=== PATIENT | female | born 1980 | race Caucasian/White ===

== ENCOUNTER → 2023-09-16 13:43 | Outpatient (REF) | payer OTHER, SELFPAY | LOC: WDC 13:43 | PROVIDERS: ATTENDING PHYSICIAN Obstetrics & Gynecology; FAMILY PHYSICIAN Nurse Practitioner Adult Health | DX: R92.8 Other abnormal and inconclusive findings on diagnostic imaging of breast (principal) | CPT/HCPCS: 76642 ==

== ENCOUNTER → 2023-09-23 10:45 | Outpatient (REF) | payer OTHER, SELFPAY | LOC: RAD 10:45 | PROVIDERS: ATTENDING PHYSICIAN Obstetrics & Gynecology; FAMILY PHYSICIAN Nurse Practitioner Adult Health | DX: N94.6 Dysmenorrhea, unspecified (principal) | CPT/HCPCS: 76830; 76856 ==

== ENCOUNTER → 2024-03-15 13:27 | Outpatient (REF) | payer OTHER, SELFPAY | LOC: WDC 13:27 | PROVIDERS: ATTENDING PHYSICIAN Obstetrics & Gynecology; FAMILY PHYSICIAN Nurse Practitioner Adult Health | DX: Z12.31 Encounter for screening mammogram for malignant neoplasm of breast (principal); R92.8 Other abnormal and inconclusive findings on diagnostic imaging of breast | CPT/HCPCS: 76642; 77063; 77067 ==

== ENCOUNTER → 2024-08-31 14:40 | Outpatient (REF) | payer OTHER, SELFPAY | LOC: RAD 14:40 | PROVIDERS: ATTENDING PHYSICIAN Nurse Practitioner Adult Health | DX: R10.0 Acute abdomen (principal) | CPT/HCPCS: 76700 ==

== ENCOUNTER 2024-10-22 06:24 | Day surgery (SDC) | payer OTHER, SELFPAY ==
[2024-10-22] VITALS (16 sets, daily range): BP systolic 88–135; BP diastolic 56–90; BMI 31.8
[2024-10-22] MEDS: TYLENOL 1000 MG PO (10:59)
[2024-10-22] MEDS: NORMOSOL-R/PLASMALYTE-A 1000 IV (10:59)
[2024-10-22] MEDS: IC GREEN 2.5 MG IV (12:09)
[2024-10-22] MEDS: HEPARIN 5000 UNITS SC (12:11)
--- NOTE | 2024-10-22 14:26 | OR.RPT ---
Operative Report
Operative Report
Primary Surgeon: Luis Fernando
Assisting Surgeon: Laura GALEAS
Pre-op Diagnosis: Biliary colic
Post-op Diagnosis: Same
Procedure Performed: Robot assisted laparoscopic cholecystectomy
Anesthesia Type: GETA
Specimen / Cultures: Gallbladder
Estimated Blood Loss: 10cc
Complications: None immediate
Operative Findings: Soft floppy gallbladder
Date of Surgery:�10/22/24
Indications: This 44F developed biliary colic. Laparoscopic cholecystectomy with robotic assist was elected.
Description of procedure: The patient was placed on the operating table in the supine position. General anesthesia was induced. A time-out was completed verifying correct patient, procedure, site, positioning, and special equipment prior to
beginning this procedure. An orogastric tube was placed. The abdomen was prepped and draped in the usual sterile fashion. The drain was prepped into the field. A stab incision was made in left upper quadrant and the Veress needle was inserted.
Proper position was confirmed by aspiration and saline meniscus test. The abdomen was insufflated with carbon dioxide to a pressure of 12mmHg. The patient tolerated insufflation well.
A 8mm trocar was then inserted at the left upper quadrant. The laparoscope was inserted and the abdomen inspected. No injuries from initial trocar placement or Veress needle insertion were noted. Additional 8mm trocars were then inserted in the
following locations: two in the right lower quadrant and to above the umbilicus. The abdomen was inspected and no abnormalities were found. The table was placed in the reverse Trendelenburg position with the right side up. The dome of the
gallbladder was grasped with an atraumatic grasper and retracted over the dome of the liver. The infundibulum was then grasped with an atraumatic grasper and retracted toward the right lower quadrant. This maneuver exposed Calot�s triangle. The
peritoneum overlying the gallbladder infundibulum was then incised and the cystic duct and cystic artery identified and circumferentially dissected so that a clear view of the liver was achieved through a window between the cystic duct an cystic
artery. At this time, the only two structures going into the gallbladder were the cystic artery and cystic duct.
The cystic duct was then doubly clipped and divided. The cystic artery was controlled with bipolar and divided. The gallbladder was then dissected from its peritoneal attachments by electrocautery. The gallbladder was removed using an endoscopic
retrieval bag placed through the umbilical port. The gallbladder was passed off the table as a specimen. The gallbladder fossa was irrigated with saline. There was no evidence of bleeding from the gallbladder fossa or cystic artery or leakage of the
bile from the cystic duct stump. The umbilical trocar site was closed at the fascial level with 2-0 PDS. Secondary trocars were removed under direct vision and noted to be hemostatic. The abdomen was allowed to collapse. The skin was closed with
subcuticular sutures of 4-0 monocryl and topical skin adhesive. The orogastric tube was removed.
The patient tolerated the procedure well and was taken to the postanesthesia care unit in stable condition.
== END 2024-10-22 15:32 | disposition home or self-care (01) ==
LOC: SDS 06:24
PROVIDERS: ATTENDING PHYSICIAN Surgery
DX: K80.10 Calculus of gallbladder with chronic cholecystitis without obstruction (principal)
CPT/HCPCS: 47562; 88304

== ENCOUNTER 2024-10-27 20:13 | Observation (INO) | payer OTHER, SELFPAY ==
[2024-10-27] VITALS (9 sets, daily range): BP systolic 117–142; BP diastolic 80–105; BMI 31.7; BMI 31.5
[2024-10-27 14:05] LABS: % Basophils 0.3 % (0-2); % Immature Granulocytes 0.3 % (0-0.5); % Lymphocytes 12.3 % (20.5-51.1); % Neutrophils 76.1 % (42.2-75.2); Absolute Eosinophils 0.1 10^3/uL (0-0.7); Absolute Lymphocytes 1.1 10^3/uL (1.2-3.4); Absolute Monocytes 0.9 10^3/uL (0.1-0.6); Absolute Neutrophils 6.8 10^3/uL (1.4-6.5); Hematocrit 42.9 % (37.0-47.0); Hemoglobin 14.7 g/dL (12.0-16.0); Mean Corp Hgb Conc. 34.3 g/dL (33.0-37.0); Mean Corpuscular Hgb 29.2 pg (27.0-31.0); Mean Corpuscular Volume 85.3 fL (81.0-99.0); Mean Platelet Volume 9.9 fL (7.4-10.4); Nucleated Red Blood Cells % 0 %; Platelet Count 335 10^3/uL (130-400); Red Blood Cell Count 5.03 10^6/uL (4.20-5.40); White Blood Cell Count 8.9 10^3/uL (4.8-10.8)
[2024-10-27 14:28] LABS: HCG, Serum Qualitative Screen Negative
[2024-10-27 14:51] LABS: ALT (SGPT) 463 U/L (0-35); AST (SGOT) 640 U/L (14-36); Albumin 4.5 g/dl (3.5-5.0); Alkaline Phosphatase 123 U/L (38-126); Blood Urea Nitrogen 11 mg/dl (7-17); Calcium 9.9 mg/dl (8.4-10.2); Carbon Dioxide 29 mmol/L (22-30); Chloride 103 mmol/L (98-107); Estimated Creatinine Clearance 113 ml/min; Glucose 94 mg/dl (70-99); Lipase 85 U/L (23-300); Sodium 138 mmol/L (135-145); Total Bilirubin 1.5 mg/dl (0.2-1.3); Total Protein 7.6 g/dl (6.3-8.2); eGFR > 60.00
--- NOTE | 2024-10-27 15:11 | ED.GENMED ---
History of Present Illness
General
Chief Complaint: Post Operative Problem(s)
Source: patient
Exam Limitations: none
Time Seen by Provider: 10/27/24 15:08
Nursing documentation reviewed up to this point in time: agreed with
History of Present Illness
History of Present Illness:
Patient is a 44-year-old female status post cholecystectomy on Tuesday [address] Gould ,woke up today with pain, same type of pain as she had prior to having surgery. She describes as a burning pain in the right upper quadrant rating to her
back. Around 8:30 AM she took tramadol and ibuprofen the pain is still about a persistent 8 out of a 10. She does report she called Dr. Gould who recommended she come to the ER
Past History
Past History
ED Past Medical History: Hypercholesterolemia and Other (Ovarian cyst)
ED Past Surgical History: None, Gynecological (Uterine ablation) and Tonsilectomy
Social History
Tobacco: Non-smoker
Alcohol: Occasional
Personal:
Living: with family
Review of Systems
Review of Systems
Allergies reviewed?: Yes
All Other Systems: ROS reviewed and negative except as documented in HPI and ROS
Constitutional: Reports no symptoms; Denies fever
Respiratory: Reports no symptoms
Cardiac: Reports no symptoms
ABD/GI: Reports abdominal pain; Denies nausea, vomiting, diarrhea or constipated
Musculoskeletal: Reports no symptoms
Skin: Reports no symptoms
Neurological: Reports no symptoms
Psychiatric: Reports no symptoms
Phy Exam
General Physical Exam
General Presentation: no apparent distress
General age: appears stated age
General Skin: warm and dry
General Habitus: normal
General Mental: alert
General Hydration: appears well hydrated
Cardiovascular Exam
Cardiovascular Exam: regular rate/rhythm, no murmur and normal peripheral pulses
Pulmonary Exam
Pulmonary Exam: lungs clear
Gastrointestinal Exam
Gastrointestinal Exam: soft and other (RUQ tenderness )
Neurological Exam
Neurological Exam: alert and oriented x3
Musculoskeletal Exam
Musculoskeletal Exam: full ROM
Skin Exam
Skin Exam: normal color and warm/dry
Psychiatric Exam
Psychiatric Exam: normal mood/affect
Course
Orders/Labs/Results
Orders:
Orders
10/27/24 13:38
IV Insert/Care/Rem.- Treatment PRN
Test Result ONCE
10/27/24 13:44
Complete Blood Count/With Diff Urgent
Comprehensive Metabolic Panel Urgent
HCG, Serum Qualitative Screen Urgent
Comment: Notify provider if positive test present
Lipase Urgent
10/27/24 15:16
HYDROmorphone [Dilaudid] 0.5 mg IV NOW STA
Ondansetron Injectable [Zofran] 4 mg IV NOW STA
10/27/24 15:18
0.9% Sodium Chloride 1000 ml [Nss] 1,000 ml IV BOLUS
10/27/24 15:21
Mrcp Without MR [MR Mrcp Without] Urgent
Comment:
Reason For Exam: ruq pain s/p cholecystectomy elevated lfts
OK for patient to be off Cardiac Monitoring for MRI: Yes
Recent pill cam endoscopy?: No
10/27/24 15:55
HYDROmorphone [Dilaudid] 1 mg .ROUTE .STK-MED ONE
10/27/24 15:56
HYDROmorphone [Dilaudid] 1 mg IV NOW STA
10/27/24 18:17
HYDROmorphone [Dilaudid] 1 mg IV NOW STA
10/27/24 19:19
Piperacillin/Tazo 3.375 Gram [Zosyn] 3.375 gram in 50 ml IV NOW
10/27/24 19:43
Admit/Transfer Patient As Directed
Co-Sign Provider:
Level of Care: Observation services
Assign to:: Medical/Surgical
Physician / Group: [facility]/general surgery
Diagnosis: post operative intractable abdominal pain
10/27/24 19:44
PRN Pain Medication Management As Directed
May give lesser potent ordered pain med per pt: Yes
preference::
Protocol:: Medication orders for pain may be administered in a
manner that supports deferring to patient preference
when the pt is:
- Requesting an ordered lesser potent pain medication.
Least to most potent pain medications are defined
as: acetaminophen < NSAID < tramadol < opioids
(morphine, oxycodone, hydromorphone).
- Requesting a lesser dose of the same medication IF
ORDERED.
- Requesting a less intrusive route of administration
if both routes are prescribed by the provider (PO <
IV).
10/27/24 19:45
Code Status As Directed
Resuscitation Status: Full Code
10/27/24 20:56
0.9% Sodium Chloride 1000 ml [Nss] 1,000 ml IV 60 mls/hr
Ondansetron Injectable [Zofran] 4 mg IV Q6HPRN PRN
10/27/24 20:56
Activity As Directed
Activity Level: Out of Bed-Early Mobility
Anti-embolism (STEWART) Hose As Directed
Type: Knee high
Intake/ Output As Directed
Frequency: Per unit guidelines
Pneumatic Compression Sleeves As Directed
Type: Thigh high
Vital Signs As Directed
Frequency: Per unit guidelines
DX Deep Vein Thrombosis Video Routine
10/28/24 Breakfast
NPO
Allow oral meds: Yes
Allow clear liquids: No
NPO with Ice Chips: Yes
Complete Blood Count/No Diff IN AM
Comprehensive Metabolic Panel IN AM
Abnormal Lab Results
10/27/24
13:44
Absolute Neuts (auto) 6.8 H 10^3/uL
(1.4-6.5)
Absolute Lymphs (auto) 1.1 L 10^3/uL
(1.2-3.4)
Absolute Monos (auto) 0.9 H 10^3/uL
(0.1-0.6)
Neutrophils % 76.1 H %
(42.2-75.2)
Lymphocytes % 12.3 L %
(20.5-51.1)
Monocytes % 10.0 H %
(1.7-9.3)
Total Bilirubin 1.5 H mg/dl
(0.2-1.3)
AST 640 H* U/L
(14-36)
ALT 463 H U/L
(0-35)
10/27/24 13:44
10/27/24 13:44
Vital Signs
Initial and Last Documented VS:
Initial Vital Signs
Temp Pulse BP Pulse Ox
98.4 F 94 142/105 98
10/27/24 13:31 10/27/24 13:31 10/27/24 13:31 10/27/24 13:31
Last Documented Vital Signs
Temp Pulse Resp BP Pulse Ox
98.2 F 89 18 125/93 98
10/27/24 21:53 10/27/24 21:53 10/27/24 21:53 10/27/24 21:53 10/27/24 21:53
MDM/Problems Addressed
Differential Diagnosis Includes:
not limited to choledocholithiasis
MDM/Problems Addressed:
As documented patient is status postcholecystectomy several days ago today with increased pain. She reports today she had increasing pain in the right upper quadrant similar to when she had gallbladder pain prior to her surgery. She does report a
fever. She presents tender to touch. Case reviewed with Dr. Gould MRCP ordered. There is no evidence for choledocholithiasis on MRCP there is soft tissue edema in the cholecystectomy bed in keeping with the patient's recent postoperative status
no loculated fluid collection. I did review this with surgery who feels that the patient may have recently passed a stone or this is a false negative MRCP because patient does have pain. Will admit. Patient has medicated for pain. Patient
reported fever this morning however she was afebrile here with a normal white count as discussed with Dr. Gould however will cover with Zosyn. Discussed with house provider.
*Radiology
Radiology exam reviewed: radiology read reviewed
*Pulse Oximetry
Patient hypoxic: no
*Critical Care Note
Total Time (30-74mins, 75-104mins- exclusive of procedures): Not Applicable
Data Reviewed
Review of Other/Old Records Reveals: Labs and Operative Reports
Source: patient
Patient Management
Discussion with other providers: Financial Analyst (DR Gould )
ED Attending Note
-
Portions of this chart may have been created with voice recognition software.� Occasional wrong word or��sound alike� substitutions may have occurred due to the inherent limitations of voice recognition software.
Discharge Plan
Departure
Patient Disposition: Admit
Date of Disposition: 10/27/24
Time of Disposition: 19:13
Admit to: Med/Surg
Admit to doctor: Luis Fernando
Presentation/result/management discussed w/ accepting MD/DO: Luis Fernando
Patient with high blood pressure during this ER visit?: Yes
Condition: Fair
Covid-19: Not Applicable
Discharge Problem:
Abdominal pain
Interventions
Interventions:
*Risk Screen - Suicide Last Done: 10/27/24 13:33
*General Assessment Last Done: 10/27/24 13:33
*Neglect/Abuse Screening Last Done: 10/27/24 13:33
*ED- Fall Risk Assessment Last Done: 10/27/24 14:32
*ED COVID-19 Vaccine History Last Done: 10/27/24 14:32
*Nursing Disposition Last Done: 10/27/24 21:40
ED-Skin Assessment Last Done: 10/27/24 14:32
Discharge Date and Time
Discharge Date/Time: 10/27/24 21:40
[2024-10-27] MEDS: NSS 1000 IV ×2 (15:26→21:21)
[2024-10-27] MEDS: ZOFRAN 4 MG IV (15:29)
[2024-10-27] MEDS: DILAUDID 0.5 MG IV (15:29)
[2024-10-27] MEDS: DILAUDID 1 MG IV ×4 (15:56→23:51)
[2024-10-27] MEDS: ZOSYN 50 IV ×2 (19:22→23:50)
--- NOTE | 2024-10-27 20:47 | HPS.HSE ---
Addendum entered and electronically signed by Umair Gould MD 10/28/24 10:41:
I saw and examined the patient.
The Loom Doffer's note was reviewed and I agree with the note.
Comment: Pain continues, epigastric. AFVSS, ttp to epigastrium and less to RUQ on exam. LFTs rising. MRCP negative for choledocho, negative for fluid collections, CBD 7mm. Clinically and biochemically c/w choledocho. Rec GI consult for EUS/ERC if
no improvement in exam/labs by tomorrow.
Original Note:
Family Physician
-
Family Physician: Zully Blum
Chief Complaint
-
abdominal pain post cholecystectomy, elevated LFTs
History of Present Illness
This is a pleasant but clearly uncomfortable 44 year old female who comes to the ED with RUQ burning abdominal pain which radiates to her back which began this morning when it awakened her from a sound sleep. She is post op day #5 of an outpatient
robotic assisted laparascopic cholecystectomy with EBL of 10 cc. She states no post operative problems until today. PMH includes Raynauds, hypercholesterolemia, meningitis 2016, anxiety, vaginal childbirth x2. She states pain is very similar to pre
surgery and did have temperature of 101 F at home today. MRCP done while here in ED showing expected inflammation, soft tissue edema, no filling defect and no loculated pleural effusion.
Medical History
Past Medical History
Past Medical History: Reports Hypercholesterolemia, Psychiatric (anxiety) and Other
Additional Past Medical History:
meningitis 2016, Covid 03/24/22, ovarian cyst
Past Surgical History: Reports Cholecystectomy (10/22/24), Gynocological (vaginal childbirth x2, uterine ablation 2017) and Other (right arm,chest cyst removal 08/12)
Social History
Tobacco: Non-smoker
Alcohol: Occasional
Drug: None
Personal:
Living: With Family
Employment: Employed
Family History
Family History: Diabetes (father with pre diabetes ), Hypertension (sister) and Other (mother with dementia and PTSD, sisters and father with hypercholesterolemia.)
Allergies / Home Medications
Allergies reflects when Allergies were last updated in [facility].
Home Medications with original date entered in [facility]
Allergy/Medication List:
Allergies
Allergy/AdvReac Type Severity Reaction Status Date / Time
No Known Allergies Allergy Verified 10/27/24 13:33
Home Medications
coQ10 (ubiquinol) 200 mg capsule 400 mg PO DAILY 10/16/24
desogestrel 0.15 mg-ethinyl estradiol 0.03 mg tablet (Apri) 1 tab PO DAILY 10/16/24
multivitamin 1 tab PO DAILY 10/16/24
omega 2-gqj-dal-fish oil 900 mg-1,400 mg capsule,delayed release 4 cap PO DAILY 10/16/24
red yeast rice 600 mg tablet 1,200 mg PO DAILY 10/16/24
venlafaxine 75 mg capsule,extended release 24 hr 75 mg PO DAILY 10/16/24
tramadol 50 mg tablet 50 - 100 mg (1 - 2 x 50 mg) PO Q6H PRN Pain #25 tabs 10/22/24
Review of Systems
-
History Source: Patient, Coordinated Provider and Other (previously obtained medical records)
A 12 point ROS was completed and negative except as noted: Yes
Constitutional: Reports Fatigue and Other (sweating )
EENT: Reports No Symptoms
Respiratory: Reports No Symptoms
Cardiac: Reports No Symptoms
Abdomen/GI: Reports Abdominal Pain (RUQ radiating to back described as burning) and Nausea
: Reports No Symptoms
Musculoskeletal: Reports No Symptoms
Skin: Reports No Symptoms
Neurological: Reports No Symptoms
Endocrine: Reports No Symptoms
Hematologic/Lymphatic: Reports No Symptoms
Psych: Reports No Symptoms
Physical Exam
Vital Signs
Vital Signs
Temp Pulse Resp BP Pulse Ox
98.2 F 89 18 125/93 98
10/27/24 21:53 10/27/24 21:53 10/27/24 21:53 10/27/24 21:53 10/27/24 21:53
Physical Exam
General: Well Developed, Well Nourished, Conversant, Pain and Sweats
HEENT: NormoCephalic, Moist mucous membranes, Atraumatic and PERRLA
Respiratory: Clear and Non Labored Respirations
Cardiac: Regular Rhythm
Breast: Deferred by me
GI: Soft, Normal Bowel Sounds and Tender
Rectal: Deferred by Provider
Genito-urinary: Clear Urine
Musculoskeletal: No Clubbing, No Cyanosis, No Edema and Normal Gait & Station
Skin: Warm, Dry and Other (stab wounds (X4 approx) healing from cholecystectomy 10/22/24)
Neuro: Awake, Alert, Oriented, No Motor Deficits, Nonfocal/grossly intact and No Sensory Deficits
Hematologic/Lymphatic: No Lymphadenopathy
Psych: Calm
Laboratory Results
-
10/27/24 13:44
10/27/24 13:44
Laboratory Results
Total Bilirubin 1.5 mg/dl (0.2-1.3) H 10/27/24 13:44
AST 640 U/L (14-36) H* 10/27/24 13:44
ALT 463 U/L (0-35) H 10/27/24 13:44
Alkaline Phosphatase 123 U/L (38-126) 10/27/24 13:44
Lipase 85 U/L (23-300) 10/27/24 13:44
Data Reviewed
-
MRI: Report Reviewed by me (No MRCP evidence for choledocholithiasis. Soft tissue edema in the cholecystectomy bed most in keeping with the patient's recent postoperative status. No loculated fluid collection.)
Old Records: Reviewed
Impression/Plan
-
IMPRESSION: Post op intractable abdominal pain
PLAN: This is a pleasant but clearly uncomfortable 44 year old female who comes to the ED with RUQ burning abdominal pain which radiates to her back which began this morning when it awakened her from a sound sleep. She is post op day #5 of an
outpatient robotic assisted laparascopic cholecystectomy with EBL of 10 cc. She states no post operative problems until today. PMH includes Raynauds, hypercholesterolemia, meningitis 2016, anxiety, vaginal childbirth x2. She states pain is very
similar to pre surgery and did have temperature of 101 F at home today. MRCP done while here in ED showing expected inflammation, soft tissue edema, no filling defect and no loculated pleural effusion.
*Intractable abdominal pain: dilaudid IV, toradol prn. NS @60 ml/hr. NPO
*Febrile episode: Trend CBC, fever curve, Zosyn IV
*Elevated LFTs: repeat in am
*Nausea: Zofran IV prn
*DVT prophylaxis: OOB, ambulate, SCDs, Teds
*Disposition: FC Admit observation General surgery service Dr. Gould.
--- NOTE | 2024-10-27 21:50 | PTCARENOTE ---
Patient arrived from ED to [facility], AAOx3, very pleasant. 5 healing lap sites to abdomen observed. Patient c/o of RUQ pain. IVF infusing per order. VSS, assessment on going.
[2024-10-27] MEDS: TORADOL 15 MG IV (22:54)
[2024-10-28] MEDS: DILAUDID 1 MG IV ×6 (03:21→22:35)
[2024-10-28] MEDS: ZOSYN 50 IV ×4 (05:38→23:51)
[2024-10-28 06:13] LABS: Hematocrit 38.4 % (37.0-47.0); Hemoglobin 13.1 g/dL (12.0-16.0); Mean Corp Hgb Conc. 34.1 g/dL (33.0-37.0); Mean Corpuscular Hgb 29.3 pg (27.0-31.0); Mean Corpuscular Volume 85.9 fL (81.0-99.0); Mean Platelet Volume 9.9 fL (7.4-10.4); Platelet Count 271 10^3/uL (130-400); Red Blood Cell Count 4.47 10^6/uL (4.20-5.40); Red Cell Dist. Width 13.2 % (11.5-14.5)
[2024-10-28 06:40] LABS: Albumin 3.5 g/dl (3.5-5.0); Alkaline Phosphatase 190 U/L (38-126); Blood Urea Nitrogen 7 mg/dl (7-17); Calcium 8.8 mg/dl (8.4-10.2); Carbon Dioxide 30 mmol/L (22-30); Chloride 106 mmol/L (98-107); Estimated Creatinine Clearance 98 ml/min; Glucose 98 mg/dl (70-99); Potassium 4.2 mmol/L (3.5-5.1); Sodium 138 mmol/L (135-145); Total Bilirubin 3.1 mg/dl (0.2-1.3); Total Protein 5.9 g/dl (6.3-8.2); eGFR > 60.00
[2024-10-28 06:53] LABS: ALT (SGPT) 880 U/L (0-35); AST (SGOT) 718 U/L (14-36)
[2024-10-28 07:15] VITALS: BP 114/81
[2024-10-28] MEDS: EFFEXOR XR 75 MG PO (07:35)
[2024-10-28] MEDS: TORADOL 15 MG IV ×3 (09:21→22:20)
--- NOTE | 2024-10-28 12:31 | CM ---
Addendum entered by Emma Calles 10/28/24 12:39:
Pt is OBS and letter was signed.
Pt has a main level set up through recovery.
Original Note:
Initial assessment completed with pt at bedside.
Pt is a 44 yr old female admitted with post op intractable abdominal pain. Pt had cholecystectomy Tuesday and has not had change in pain and no VN at home.
At baseline, pt lives with her and their children in a multi level home with 3ste.
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
PCP; Zully Blum
Pharm; [facility] [address] [place]
PLAN; Home with no needs.
[2024-10-28 15:10] VITALS: BP 127/92
[2024-10-28] MEDS: NSS 1000 IV (15:14)
[2024-10-28] MEDS: ZOFRAN 4 MG IV (19:06)
[2024-10-28 22:41] VITALS: BP 129/82
[2024-10-29] MEDS: ZOSYN 50 IV ×2 (04:59→11:37)
[2024-10-29 07:30] VITALS: BP 110/75
[2024-10-29 07:36] LABS: Hematocrit 39.2 % (37.0-47.0); Hemoglobin 13.1 g/dL (12.0-16.0); Mean Corp Hgb Conc. 33.4 g/dL (33.0-37.0); Mean Corpuscular Hgb 28.5 pg (27.0-31.0); Mean Corpuscular Volume 85.4 fL (81.0-99.0); Mean Platelet Volume 9.8 fL (7.4-10.4); Platelet Count 298 10^3/uL (130-400); Red Blood Cell Count 4.59 10^6/uL (4.20-5.40); Red Cell Dist. Width 13.1 % (11.5-14.5); White Blood Cell Count 8.7 10^3/uL (4.8-10.8)
[2024-10-29 08:08] LABS: ALT (SGPT) 634 U/L (0-35); AST (SGOT) 250 U/L (14-36); Albumin 3.9 g/dl (3.5-5.0); Alkaline Phosphatase 290 U/L (38-126); Blood Urea Nitrogen 7 mg/dl (7-17); Calcium 9.4 mg/dl (8.4-10.2); Carbon Dioxide 24 mmol/L (22-30); Chloride 105 mmol/L (98-107); Estimated Creatinine Clearance 112 ml/min; Glucose 71 mg/dl (70-99); Potassium 4.6 mmol/L (3.5-5.1); Sodium 138 mmol/L (135-145); Total Bilirubin 5.5 mg/dl (0.2-1.3); Total Protein 6.5 g/dl (6.3-8.2); eGFR > 60.00
--- NOTE | 2024-10-29 08:35 | CON.GI ---
Addendum entered and electronically signed by Elvia Billy MD 10/29/24 10:37:
I saw and examined the patient.
The LOAD TALLIER or PA's note was reviewed and I agree with the note.
Comment:
This patient is a 44-year-old woman with a history of hyperlipidemia, cholelithiasis, status post cholecystectomy on October 22, 2024. She presented on 10 27 with a right upper quadrant pain that was severe and radiated to her back with a fever. She did
have abnormal liver enzymes on admission but an MRCP performed showed no stones and a surgically absent gallbladder. She was started on Zosyn. She did have resolving discomfort which is minimal now.
abd: soft, tender ruq
impression:
abnl lfts
hx of cholecystectomy
plan:
d/w Dr. Lao and will do EUS to determine if small residual stone
follow lfts
pain control
NPO
add hep panel
Original Note:
Consultation
-
Date/Time Consultation Requested: 10/28/24 0858
Date/Time Consultation Performed: 10/29/24 0815
Requesting Provider: SANTO Nam
Performing Provider: Dr. Billy/SANTO Valdez
Reason for Consultation: RUQ pain, elevated LFTs
Medical History
Chief Complaint / HPI
Chief Complaint: RUQ pain
History of Present Illness:
44-year-old female with past medical history of hyperlipidemia, Raynaud's, anxiety, meningitis, ovarian cyst, cholelithiasis status post laparoscopic robotic cholecystectomy on 10/22/2024 presents to the emergency room on 10/27/2024 with right upper
quadrant discomfort that she described as dull, burning that radiated to her back. She states at home she had a fever of 101. It started that morning. She rated it as a 9 on a scale of 0-10. It went away quickly and this morning she rates it as
a '2'. She states this was similar to her biliary colic that she experienced prior to her surgery. She is currently feeling 'hot cold'. Without any fevers. On presentation patient had total bilirubin of 1.5, AST of 640, ALT of 463 and alk phos
of 123. Lipase was 85. Normal white count of 8.9. She was started on Zosyn. She had an MRCP performed that showed surgically absent gallbladder. Postoperative soft tissue edema in the cholecystectomy bed. No loculated fluid collection. No
significant intrahepatic bile duct dilatation. Normal caliber of the CBD measuring 7 mm. No filling defect. Main PD is nondilated. We are asked to evaluate as patient is having rising bilirubin and alk phos. On 10/28/2024 her bilirubin paxton to
3.1 with an AST of 718 and ALT of 880 as well as alk phos of 190. The patient states her pain has improved and this morning her total bilirubin is 5.5, AST of 250, ALT is 634 and alk phos of 290. She does have bilirubinuria. No bowel movements.
She is still feeling that 'hot cold sensation' and still remains afebrile. She denies any current fevers, nausea, vomiting, melena, hematochezia, dysphagia or odynophagia. No early satiety or unintentional weight loss. She has never had
endoscopy or colonoscopy before.
Past Medical History
Past Medical History: Hypercholesterolemia and Other (Raynaud's, anxiety, meningitis, ovarian cysts, cholelithiasis)
Past Surgical History: Cholecystectomy and Other (Uterine ablation, right arm, chest cyst removal)
Social History
Tobacco: Non-Smoker
Alcohol: Occasional
Drug: None
Personal:
Living: With Family
Employment: Employed
Family History
Family History: Other (No family history of gastrointestinal malignancy or IBD)
Allergies / Home Medications
Allergy/AdvReac Type Severity Reaction Status Date / Time
No Known Allergies Allergy Verified 10/27/24 13:33
�Medication �Instructions �Recorded
coQ10 (ubiquinol) 200 mg capsule 400 mg PO DAILY Supplement 10/16/24
desogestrel 0.15 mg-ethinyl 1 tab PO DAILY Hormonal Agent 10/16/24
estradiol 0.03 mg tablet (Apri)
multivitamin 1 tab PO DAILY Supplement 10/16/24
omega 6-dtl-ckl-fish oil 900 4 cap PO DAILY Supplement 10/16/24
mg-1,400 mg capsule,delayed release
red yeast rice 600 mg tablet 1,200 mg PO DAILY Supplement 10/16/24
venlafaxine 75 mg capsule,extended 75 mg PO DAILY Depression 10/16/24
release 24 hr
tramadol 50 mg tablet 50 - 100 mg (1 - 2 x 50 mg) PO Q6H 10/22/24
PRN Pain #25 tabs
Review of Systems
-
All other systems: A 12 pt ROS was Negative except as stated above in HPI
Vital Signs
Temp Pulse Resp BP Pulse Ox
98.4 F 89 16 110/75 96
10/29/24 07:30 10/29/24 07:30 10/29/24 07:30 10/29/24 07:30 10/29/24 07:30
Physical Exam
Exam
General: No Apparent Distress
HEENT: Anicteric
Respiratory: Clear
Cardiac: Regular Rhythm
GI: Soft, Non Tender, Non Distended, Normal Bowel Sounds and Other (Healing laparoscopic incisions)
Skin: Warm and Dry
Neuro: AO x 3
Psych: Calm
Results
WBC 8.7 10^3/uL (4.8-10.8) 10/29/24 06:54
Hgb 13.1 g/dL (12.0-16.0) 10/29/24 06:54
Hct 39.2 % (37.0-47.0) 10/29/24 06:54
MCV 85.4 fL (81.0-99.0) 10/29/24 06:54
Plt Count 298 10^3/uL (130-400) 10/29/24 06:54
Absolute Neuts (auto) 6.8 10^3/uL (1.4-6.5) H 10/27/24 13:44
Sodium 138 mmol/L (135-145) 10/29/24 06:54
Potassium 4.6 mmol/L (3.5-5.1) 10/29/24 06:54
Chloride 105 mmol/L (98-107) 10/29/24 06:54
Carbon Dioxide 24 mmol/L (22-30) 10/29/24 06:54
BUN 7 mg/dl (7-17) 10/29/24 06:54
Creatinine 0.7 mg/dL (0.6-1.0) 10/29/24 06:54
Calcium 9.4 mg/dl (8.4-10.2) 10/29/24 06:54
Total Bilirubin 5.5 mg/dl (0.2-1.3) H D 10/29/24 06:54
AST 250 U/L (14-36) H 10/29/24 06:54
ALT 634 U/L (0-35) H* 10/29/24 06:54
Alkaline Phosphatase 290 U/L (38-126) H 10/29/24 06:54
Lipase 85 U/L (23-300) 10/27/24 13:44
Hepatitis A IgM Ab Cancelled 10/29/24 08:24
Hep Bs Antibody Cancelled 10/29/24 08:24
Hep B Core IgM Ab Cancelled 10/29/24 08:24
Hepatitis C Antibody Cancelled 10/29/24 08:24
Diagnostic Image Results:
MRCP 10/27/2024:
IMPRESSION:
No MRCP evidence for choledocholithiasis.
Soft tissue edema in the cholecystectomy bed most in keeping with the patient's recent postoperative status. No loculated fluid collection.
Ultrasound abdomen 08/31/2024:
IMPRESSION:
Cholelithiasis; gallbladder contains multiple shadowing stones. No secondary findings for acute cholecystitis.
3.5 mm nephrolith within the midpole of the LEFT kidney.
Prior GI Procedures:
EGD: None
Colonoscopy: None
Assessment / Plan
-
44-year-old female with past medical history of hyperlipidemia, Raynaud's, anxiety, meningitis, ovarian cyst, cholelithiasis status post laparoscopic robotic cholecystectomy on 10/22/2024 presents to the emergency room on 10/27/2024 with right upper
quadrant discomfort that she described as dull, burning that radiated to her back. She states at home she had a fever of 101. It started that morning. She rated it as a 9 on a scale of 0-10. It went away quickly and this morning she rates it as
a '2'. She states this was similar to her biliary colic that she experienced prior to her surgery. She is currently feeling 'hot cold'. Without any fevers. On presentation patient had total bilirubin of 1.5, AST of 640, ALT of 463 and alk phos
of 123. Lipase was 85. Normal white count of 8.9. She was started on Zosyn. She had an MRCP performed that showed surgically absent gallbladder. Postoperative soft tissue edema in the cholecystectomy bed. No loculated fluid collection. No
significant intrahepatic bile duct dilatation. Normal caliber of the CBD measuring 7 mm. No filling defect. Main PD is nondilated. We are asked to evaluate as patient is having rising bilirubin and alk phos.
Impression:
Right upper quadrant pain
Elevated LFTs, in an obstructive pattern
s/p Robotic lap CCY 10/25/24
Plan:
-NPO except meds
-Add on direct bilirubin
-Check acute hep panel
-Will review MRCP with Dr. Lao
-To consider EUS with Dr. Lao later today
-CBC, BMP, LFTs in am
-Further recommendations to be forthcoming.
-
-
Thank you for consultation and allowing me to participate in the patient's care. Please call the [facility] consultant GI physician during the after hours with any questions or concerns.
[2024-10-29] MEDS: EFFEXOR XR 75 MG PO (08:38)
[2024-10-29] MEDS: NSS 1000 IV (08:43)
[2024-10-29 10:04] LABS: Direct Bilirubin 4.1 mg/dl (0.0-0.4)
--- NOTE | 2024-10-29 10:18 | W.PN.GS2 ---
Today's Communication / Plan
-
NPO for EUS
Assessment / Plan
-
44 yo female who is POD #[address] Gould as an outpatient presenting with epigastric pain and rising LFTs
AFVSS
Bilirubin rising
No leukocytosis
MRCP on presentation without fluid collection, expected edema present. No choledocholithiasis on imaging although suspect this clinically
--Appreciate GI eval, d/w GI team
--NPO for EUS today with GI
--Analgesics prn
--IVF while NPO
--Trend labs
--ABX ppx with IV zosyn
Subjective Data
-
Date of Service: October 29, 2024
Patient seen and examined at bedside with Dr. Preciado. Denies n/v. Tolerated clears yesterday. Epigastric tenderness still present but pain improving overall.
Objective Data
-
Intake and Output
10/28/24 10/29/24 10/30/24
06:59 06:59 06:59
Intake Total 600 / 600 2820 / 2820
Balance 600 / 600 2820 / 2820
Intake:
Oral fluids 1360 / 1360
IV fluids (Total) 600 / 600 1260 / 1260
IV piggybacks 200 / 200
Other:
Number of approximated MODERATE 4
amounts of urine
Number of approximated LARGE 3 2
amounts of urine
Vital Signs
Temp Pulse Resp BP Pulse Ox
98.4 F 89 16 110/75 96
10/29/24 07:30 10/29/24 07:30 10/29/24 07:30 10/29/24 07:30 10/29/24 08:30
Lab Results
10/29/24 06:54
10/29/24 06:54
Calcium 9.4 mg/dl (8.4-10.2) 06/09/25 06:54
Total Bilirubin 5.5 mg/dl (0.2-1.3) H D 10/29/24 06:54
Direct Bilirubin 4.1 mg/dl (0.0-0.4) H 10/29/24 06:54
AST 250 U/L (14-36) H 10/29/24 06:54
ALT 634 U/L (0-35) H* 10/29/24 06:54
Alkaline Phosphatase 290 U/L (38-126) H 10/29/24 06:54
Total Protein 6.5 g/dl (6.3-8.2) 10/29/24 06:54
Albumin 3.9 g/dl (3.5-5.0) 10/29/24 06:54
Physical Exam
-
NAD
Mild scleral icterus/jaundice
Incisions healing well with mild ecchymosis
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
--- NOTE | 2024-10-29 15:08 | CM ---
Bilirubin rising, pain improving, IV/AB. Discharge POC: Anticipate home with no needs.
[2024-10-29 15:25] VITALS: BP 117/75; BP_SYST 21
[2024-10-29 15:40] VITALS: BP 128/80; BP_SYST 20
[2024-10-29 15:50] VITALS: BP 134/4; BP_SYST 20
[2024-10-29 16:05] VITALS: BP 125/86
[2024-10-29 18:42] LABS: Hepatitis B Surface Antigen Negative (Negative)
[2024-10-29 18:45] LABS: Hepatitis A IgM Antibody Negative (Negative); Hepatitis B Core Ab, IgM Negative (Negative)
[2024-10-29 18:59] LABS: Hepatitis B Surface Antibody Negative; Hepatitis C Antibody Negative (Negative)
[2024-10-29] MEDS: PROTONIX 40 MG PO (20:20)
[2024-10-29 23:00] VITALS: BP 126/75
[2024-10-30] MEDS: NSS 1000 IV (01:05)
--- NOTE | 2024-10-30 06:21 | W.PN.GI.CBS2 ---
Today's Communication / Plan
-
Please see assessment and plan for details.
Assessment / Plan
-
1. Abdominal pain/elevated LFTs: Clinically consistent with CBD stone, likely spontaneously passed given improvement in LFTs and symptoms, negative MRI and endoscopic ultrasound. Hepatitis panel and other workup negative, again clinically
consistent with CBD stone. At this point will advance diet and await morning labs. If tolerating diet labs continue to improve and is okay to DC from GI standpoint, will repeat LFTs in 2 to 3 weeks to assure normalization.
Subjective
Subjective
Date of Service: October 30, 2024
Patient feeling well, no abdominal pain, nausea or vomiting overnight. Tolerated endoscopic ultrasound without difficulty. Tolerating clears without difficulty.
Objective
Data Reviewed
Laboratory Data:
Laboratory Results
Total Bilirubin 5.5 mg/dl (0.2-1.3) H D 10/29/24 06:54
AST 250 U/L (14-36) H 10/29/24 06:54
ALT 634 U/L (0-35) H* 10/29/24 06:54
Alkaline Phosphatase 290 U/L (38-126) H 10/29/24 06:54
Lipase 85 U/L (23-300) 10/27/24 13:44
Vital Signs and I&O:
Vital Signs
Temp Pulse Resp BP Pulse Ox
98.5 F 92 16 126/75 95
10/29/24 23:00 10/29/24 23:00 10/29/24 23:00 10/29/24 23:00 10/29/24 23:00
I&O
10/28/24 10/29/24 10/30/24
06:59 06:59 06:59
Intake Total 600 / 600 2820 / 2820 1370 / 1370
Balance 600 / 600 2820 / 2820 1370 / 1370
Physical Exam
Physical Exam
General: NAD
Abdomen: normal bowel sounds, soft, no tenderness, no masses or bruits, no ascites
[2024-10-30 07:16] LABS: % Basophils 0.5 % (0-2); % Eosinophils 3.3 % (0-6); % Immature Granulocytes 0.7 % (0-0.5); % Lymphocytes 18.8 % (20.5-51.1); % Neutrophils 67.7 % (42.2-75.2); Absolute Eosinophils 0.2 10^3/uL (0-0.7); Absolute Immature Granulocytes 0.1 10^3/uL (0-0.05); Absolute Lymphocytes 1.4 10^3/uL (1.2-3.4); Absolute Monocytes 0.7 10^3/uL (0.1-0.6); Hematocrit 36.7 % (37.0-47.0); Hemoglobin 12.5 g/dL (12.0-16.0); Mean Corp Hgb Conc. 34.1 g/dL (33.0-37.0); Mean Corpuscular Hgb 28.9 pg (27.0-31.0); Mean Platelet Volume 9.9 fL (7.4-10.4); Nucleated Red Blood Cells % 0 %; Platelet Count 285 10^3/uL (130-400); Red Blood Cell Count 4.32 10^6/uL (4.20-5.40); Red Cell Dist. Width 13.2 % (11.5-14.5); White Blood Cell Count 7.3 10^3/uL (4.8-10.8)
[2024-10-30 07:25] VITALS: BP 125/87
[2024-10-30 07:44] LABS: ALT (SGPT) 440 U/L (0-35); AST (SGOT) 118 U/L (14-36); Albumin 3.7 g/dl (3.5-5.0); Alkaline Phosphatase 234 U/L (38-126); Blood Urea Nitrogen 5 mg/dl (7-17); Calcium 8.8 mg/dl (8.4-10.2); Carbon Dioxide 20 mmol/L (22-30); Chloride 109 mmol/L (98-107); Direct Bilirubin 0.5 mg/dl (0.0-0.4); Estimated Creatinine Clearance > 125 ml/min; Glucose 79 mg/dl (70-99); Potassium 4.2 mmol/L (3.5-5.1); Sodium 138 mmol/L (135-145); Total Bilirubin 1.4 mg/dl (0.2-1.3); Total Protein 6.1 g/dl (6.3-8.2); eGFR > 60.00
--- NOTE | 2024-10-30 08:55 | W.PN.GS2 ---
Today's Communication / Plan
-
DC
Assessment / Plan
-
44 yo female who is POD8 s/p RAL cholecystectomy as an outpatient presenting with epigastric pain and rising LFTs, now resolved
AFVSS
Bilirubin trending down
No leukocytosis
MRCP on presentation without fluid collection, expected edema present. No choledocholithiasis on imaging although suspect this clinically. Most likely the stone passed.
EUS negative
--Appreciate GI eval and EUS
--Analgesics prn
--DC home
Subjective Data
-
Date of Service: October 30, 2024
AFVSS, ambulating, billy reg diet, pain resolved, denies n/v
Objective Data
-
Intake and Output
10/29/24 10/30/24 10/31/24
06:59 06:59 06:59
Intake Total 2820 / 2820 1850 / 1850
Balance 2820 / 2820 1850 / 1850
Intake:
Oral fluids 1360 / 1360 1080 / 1080
IV fluids (Total) 1260 / 1260 720 / 720
IV piggybacks 200 / 200 50 / 50
Other:
Number of approximated MODERATE 4 1
amounts of urine
Number of approximated LARGE 2
amounts of urine
Vital Signs
Temp Pulse Resp BP Pulse Ox
98.7 F 86 16 125/87 96
10/30/24 07:25 10/30/24 07:25 10/30/24 07:25 10/30/24 07:25 10/30/24 07:25
Lab Results
10/30/24 06:03
10/30/24 06:03
Calcium 8.8 mg/dl (8.4-10.2) 10/30/24 06:03
Total Bilirubin 1.4 mg/dl (0.2-1.3) H D 10/30/24 06:03
Direct Bilirubin 0.5 mg/dl (0.0-0.4) H 10/30/24 06:03
AST 118 U/L (14-36) H 10/30/24 06:03
ALT 440 U/L (0-35) H 10/30/24 06:03
Alkaline Phosphatase 234 U/L (38-126) H 10/30/24 06:03
Total Protein 6.1 g/dl (6.3-8.2) L 10/30/24 06:03
Albumin 3.7 g/dl (3.5-5.0) 10/30/24 06:03
Physical Exam
-
Gen: NAD
Abd: soft, nt, incisions cdi
Patient has a vilchis catheter: No
Patient has a central line: No
--- NOTE | 2024-10-30 08:57 | W.DS.TRANS ---
Addendum entered and electronically signed by SANTO Carrera 11/02/24 09:52:
dictated #[id number]
Addendum entered and electronically signed by Umair Gould MD 10/30/24 10:19:
Protonix 40mg BID added
Original Note:
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
-
Discharge Instructions:
Diet As tolerated
Activity No strenuous activity
Additional Activity Do not lift over 15-20 lbs for 2 weeks from the
date of your original surgery
Bathing Restrictions OK to Shower
Blood Work repeat liver functions in 2 weeks. See slip on
chart-- sent to [facility]
Wound Care Allow the glue to flake off your incisions over
the next week or two. Avoid scrubbing or picking
off
Instructions:
Stand-Alone Forms:
Changes to Home Medications: No
Discharge Medications:
DC Medications w/original date entered in [employer]
coQ10 (ubiquinol) 200 mg capsule 400 mg PO DAILY Supplement 10/16/24
desogestrel 0.15 mg-ethinyl estradiol 0.03 mg tablet (Apri) 1 tab PO DAILY Hormonal Agent 10/16/24
multivitamin 1 tab PO DAILY Supplement 10/16/24
omega 8-kdx-nop-fish oil 900 mg-1,400 mg capsule,delayed release 4 cap PO DAILY Supplement 10/16/24
red yeast rice 600 mg tablet 1,200 mg PO DAILY Supplement 10/16/24
venlafaxine 75 mg capsule,extended release 24 hr 75 mg PO DAILY Depression 10/16/24
tramadol 50 mg tablet 50 - 100 mg (1 - 2 x 50 mg) PO Q6H PRN Pain #25 tabs 10/22/24
Home Medication Changes
Pending Results: No
[2024-10-30] MEDS: EFFEXOR XR 75 MG PO (09:22)
[2024-10-30] MEDS: PROTONIX 40 MG PO (09:22)
--- NOTE | 2024-10-30 11:17 | CM ---
Patient has been medically cleared for discharge to home with no additional skilled services. to transport home.
== END 2024-10-30 10:30 | disposition home or self-care (01) ==
LOC: 2 SOUTH 20:13
PROVIDERS: Emergency Medicine; Internal Medicine Gastroenterology; Nurse Practitioner; Registered Nurse; ADMITTING PHYSICIAN Surgery; CONSULT PHYSICIAN Internal Medicine; EMERGENCY PHYSICIAN Student in an Organized Health Care Education/Training Program; FAMILY PHYSICIAN Nurse Practitioner Adult Health
PROC: 0DJ08ZZ Inspection of Upper Intestinal Tract, Via Natural or Artificial Opening Endoscopic (ICD-10-PCS; 2024-10-29)
DX: K26.9 Duodenal ulcer, unspecified as acute or chronic, without hemorrhage or perforation (principal); G89.18 Other acute postprocedural pain; K80.70 Calculus of gallbladder and bile duct without cholecystitis without obstruction; Z90.49 Acquired absence of other specified parts of digestive tract; R79.89 Other specified abnormal findings of blood chemistry; K86.9 Disease of pancreas, unspecified
CPT/HCPCS: 43237; 74181; 80053; 82248; 83690; 84703; 85025; 85027; 86705; 86706; 86709; 86803; 87340; 96361; 96365; 96375; 96376; 99285; G0378

== ENCOUNTER → 2025-03-19 19:31 | Outpatient (REF) | payer OTHER, SELFPAY | LOC: WDC 19:31 | PROVIDERS: ATTENDING PHYSICIAN Nurse Practitioner Adult Health | DX: Z12.31 Encounter for screening mammogram for malignant neoplasm of breast (principal) | CPT/HCPCS: 77063; 77067 ==

== ENCOUNTER → 2025-03-25 08:50 | Outpatient (REF) | payer OTHER, SELFPAY | LOC: WDC 08:50 | PROVIDERS: ATTENDING PHYSICIAN Nurse Practitioner Adult Health | DX: R92.8 Other abnormal and inconclusive findings on diagnostic imaging of breast (principal) | CPT/HCPCS: 76642 ==